=== PATIENT | male | born 1980 | race Caucasian/White ===

== ENCOUNTER → 2016-11-29 | Outpatient (CLI) | payer OTHER ==
--- NOTE | 2016-11-29 10:48 | US ---
EXAMINATION TYPE: US liver DATE OF EXAM: 11/29/2016 COMPARISON: NONE CLINICAL HISTORY: 36-year-old male R94.5 abn liver function. Elevated liver enzymes TECHNIQUE: Multiple sonographic images of the right upper quadrant are obtained. FINDINGS: PARALEGAL SECRETARY NOTES: Technical limitations due to patient's body habitus and large amount of overlyi ng bowel content Liver Length: 20.6 cm Gallbladder Wall: 0.3 cm CBD: 0.4 cm Right Kidney: 11.7 x 6.0 x 6.2 cm Pancreas: Obscured by bowel gas Liver: Enlarged and markedly echogenic and attenuating. Gallbladder: No abnormal gallbladder distention. Gallbladder wall is upper limits of normal in thick ness. No pericholecystic fluid. Some focal fatty sparing noted along the gallbladder fossa. A few ech ogenic, nonshadowing foci are present along the posterior gallbladder wall measuring up to 6 mm. Evidence for sonographic Lerma's sign: no CBD: visualized portions appear wnl Right Kidney: no evidence of hydronephrosis. IMPRESSION: 1. Hepatomegaly with marked hepatic steatosis. Correlate with LFTs, lipid profile, and patient risk f actors. 2. Either a few adherent gallstones versus more likely a few gallbladder wall polyps measuring up to 6 mm. Six-month follow-up gallbladder ultrasound recommended to assess stability.
--- NOTE | 2016-11-29 11:00 | US ---
EXAMINATION TYPE: US renal artery duplex complete DATE OF EXAM: 11/29/2016 COMPARISON: NONE CLINICAL HISTORY: 36-year-old male I10 HTN. HTN for 2-3 years TECHNIQUE: Multiple sonographic images of the kidneys and renal arterial vasculature were obtained fo r assessment of renal artery stenosis. FINDINGS: MEASUREMENTS: RENAL SIZE: Rt Kidney: 11.3 x 5.9 x 6.2cm Lt Kidney: 11.4 x 6.7 x 5.7cm RESISTANCE INDEX Right: 0.55 Left: 0.48 Aortic peak systolic velocity: 113 cm/s Max RA VELOCITY ( < 180 cm/s) Proximal Right: 132.2 cm/s Proximal Left: 127.8 cm/s RA/AO RATIO (< 3.5 ) Right: 1.2 Left: 1.1 MEDICAL TECHNOLOGIST HEMATOLOGY NOTES: *Technical limitations due to patient's body habitus and large amount of overlying bowel content. Visualized portions of abdominal aorta appear wnl, bifurcation obscured by overlying bowel. Kidneys appear unremarkable. NO evidence of renal artery stenosis at this time, as visualized. Resistive indices of approximately 0.5 noted throughout. Good upstroke at segmental branches at the hilum . IMPRESSION: 1. No hydronephrosis. 2. No sonographic evidence for renal artery stenosis on either side.
--- NOTE | 2016-11-29 11:02 | ECHOF ---
Referral Reason:I10 HTN MEASUREMENTS -------- HEIGHT: 182.9 cm WEIGHT: 117.9 kg BP: 140/100 RVIDd: 3.0 cm (< 3.3) IVSd: 1.1 cm (0.6 - 1.1) LVIDd: 3.9 cm (3.9 - 5.3) LVPWd: 1.2 cm (0.6 - 1.1) IVSs: 1.4 cm LVIDs: 3.2 cm LVPWs: 1.2 cm LAESV Index (A-L): 22.80 ml/m Ao Diam: 3.2 cm (2.0 - 3.7) AV Cusp: 2.2 cm (1.5 - 2.6) LA Diam: 3.8 cm (2.7 - 3.8) MV EXCURSION: 17.354 mm (> 18.000) MV EF SLOPE: 69 mm/s (70 - 150) EPSS: 0.3 cm MV E Pedro: 0.77 m/s MV DecT: 210 ms MV A Pedro: 0.56 m/s MV E/A Ratio: 1.38 RAP: 5.00 mmHg RVSP: 8.48 mmHg FINDINGS -------- Sinus rhythm. This was a technically adequate study. There is mild concentric left ventricular hypertrophy. Overall left ventricular systolic function is normal with, an EF between 55 - 60 %. The right ventricle is normal in size. Normal LA size by volume 22+/-6 ml/m2. The right atrial size is normal. The aortic valve is trileaflet, and appears structurally normal. No aortic stenosis or regurgitation. Mild mitral annular calcification present. Mild mitral regurgitation is present. Mild tricuspid regurgitation present. There is no evidence of pulmonary hypertension. The right ventricular systolic pressure, as measured by Doppler, is 8.48mmHg. There is no pulmonic regurgitation present. The aortic root size is normal. There is no pericardial effusion. CONCLUSIONS -------- 1. There is mild concentric left ventricular hypertrophy. 2. Overall left ventricular systolic function is normal with, an EF between 55 - 60 %. 3. Mild mitral annular calcification present. 4. Mild mitral regurgitation is present. 5. Mild tricuspid regurgitation present. 6. There is no evidence of pulmonary hypertension. 7. The right ventricular systolic pressure, as measured by Doppler, is 8.48mmHg. 8. There is no pulmonic regurgitation present. BUSINESS FUNCTIONAL ANALYST: Lashell Hernandez RDCS
== END | disposition home or self-care (01) ==
LOC: RADUSMAIN 08:04
PROVIDERS: ATTEND Family Medicine
DX: R16.0 Hepatomegaly, not elsewhere classified (principal); K76.0 Fatty (change of) liver, not elsewhere classified; I10 Essential (primary) hypertension; I08.1 Rheumatic disorders of both mitral and tricuspid valves
CPT/HCPCS: 76705; 93306; 93975

== ENCOUNTER → 2017-05-14 | Outpatient (CLI) | payer SELFPAY ==
--- NOTE | 2017-05-14 11:46 | US ---
EXAMINATION TYPE: US abdomen complete DATE OF EXAM: 05/14/2017 COMPARISON: Liver ultrasound November 29, 2016 CLINICAL HISTORY: R74.8 Abnormal Levels of other Enzymes. Elevated liver enzymes EXAM MEASUREMENTS: Liver Length: 19.0 cm Gallbladder Wall: 0.3 cm CBD: 0.4 cm Spleen: 14.6 cm Right Kidney: 11.1 x 6.5 x 6.6 cm Left Kidney: 11.2 x 7.4 x 5.3 cm Pancreas: obscured by overlying midline bowel gas Liver: enlarged at 19.0cm, increased echogenicity, increased attenuation with decreased visualizatio n of vessels, heterogeneous with 2.0cm hypoechoic area adjacent to gallbladder suggesting focal spari ng Gallbladder: wall measures in upper limits of normal at 0.3cm, multiple echogenic non shadowing foci seen along posterior wall with largest measuring 0.7cm. Evidence for sonographic Lerma's sign: no CBD: visualized portions wnl, limited by overlying bowel gas Spleen: enlarged at 14.6cm Right Kidney: wnl Left Kidney: 3.6 x 2.6cm isoechoic area mid pole, possible prominent column of ronald Upper IVC: wnl Abd Aorta: visualized portions wnl, proximal and mid portions obscured by overlying midline bowel ga s The visualized liver is redemonstrated heterogeneously hyperechoic similar to prior. Evaluation focal masses suboptimal due to the heterogeneity. The intrahepatic portion of the IVC and visualized porti on of abdominal aorta are within normal limits. Gallbladder shows small nonshadowing foci without mob ility felt to reflect tiny polyp similar to prior. Common bile duct is unremarkable. The visualized portions of the pancreas are homogenous. The spleen is enlarged measuring 14.6 cm on long axis. Ki dneys are free of hydronephrosis. Technologist torres 3.5 cm central isoechoic area favoring prominent renal cortex, solid or cystic lesion felt much less likely. IMPRESSION: Redemonstration of heterogeneous hyperechoic liver could reflect diffuse fatty infiltrati on or underlying hepatocellular disease, former is favored. Splenomegaly is however noted. Imaging gu ided random biopsy of liver can be performed to further evaluate if desired.
== END | disposition home or self-care (01) ==
LOC: RADUSWWP 09:52
PROVIDERS: ATTEND Family Medicine
DX: R16.1 Splenomegaly, not elsewhere classified (principal); K76.89 Other specified diseases of liver
CPT/HCPCS: 76700

== ENCOUNTER → 2017-12-10 | Outpatient (CLI) | payer OTHER ==
--- NOTE | 2017-12-10 11:51 | US ---
EXAMINATION TYPE: US venous doppler duplex LE BI DATE OF EXAM: 12/10/2017 8:54 AM COMPARISON: NONE CLINICAL HISTORY: 37-year-old male R60.0 Edema bilateral lower extremities. LE redness and swelling x 1 month; One antihypertensive medication recently discontinued. SIDE PERFORMED: Bilateral TECHNIQUE: The lower extremity deep venous system is examined utilizing real time linear array sonog jaylyn with graded compression, Doppler sonography and color-flow sonography. FINDINGS: VESSELS IMAGED: Common Femoral Vein Deep Femoral Vein Greater Saphenous Vein * Femoral Vein Popliteal Vein Small Saphenous Vein * Proximal Calf Veins Posterior tibial veins (* superficial vessels) Right Leg: Negative for DVT Left Leg: Negative for DVT; pulsatile left CFV Doppler signal is noted and is suggestive of CHF Edema channels are noted bilateral ankle. IMPRESSION: 1. No evidence for DVT within the bilateral lower extremities. 2. Some pulsatility to the venous flow in the left common femoral vein can be seen with elevated righ t heart pressures such as from CHF. Clinical correlation recommended. 3. Subcutaneous edema noted at both ankles and may relate to fluid overload state.
== END | disposition home or self-care (01) ==
LOC: RADUSWWP 08:21
PROVIDERS: ATTEND Family Medicine
DX: R60.0 Localized edema (principal)
CPT/HCPCS: 93970

== ENCOUNTER → 2018-03-14 | Day surgery (SDC) | payer OTHER ==
[2018-03-12 13:16] VITALS: BMI 35.6
[~2018-03-14] MED LIST: LACTATED RINGERS 1,000 ML IV ONE; LACTATED RINGERS 1,000 ML IV SCH; LIDOCAINE 1% 20 ML VIAL (10MG/ML) FOR IV START INTRADERMA ONE; PROPOFOL 10 MG/ML 20 ML VIAL IV ONE
[2018-03-14 08:31] VITALS: TEMP 97
[2018-03-14 08:41] LABS: Glucose,Whole Blood 143 mg/dL (75-99)
--- NOTE | 2018-03-14 09:20 | P.PCN ---
Date of Procedure: 03/14/18 Procedure(s) Performed: BRIEF HISTORY: Patient is a 38-year-old, pleasant, male, scheduled for an upper endoscopy as a part of evaluation of long-standing history of GERD and Felix' s esophagus. Last upper endoscopy was 2 years ago. He remains and AcipHex 20 mg daily. PROCEDURE PERFORMED: Esophagogastroduodenoscopy with biopsy. PREOPERATIVE DIAGNOSIS: Long-standing history of GERD/Felix's esophagus. IV sedation per anesthesia. PROCEDURE: After informed consent was obtained, the patient was brought into the endoscopy unit. IV sedation was administered by Anesthesia under continuous monitoring. Initially the Olympus GIF-140 video endoscope was inserted into the mouth. Esophagus intubated without any difficulty. It was gradually advanced into the stomach and duodenum and carefully examined. The bulb and the second part of the duodenum appeared normal. The scope at this time was withdrawn to the stomach, adequately insufflated with air, and upon careful examination, mucosa of the antrum, body appeared normal. There was large amount of food noted in the fundus of the stomach suggestive of gastroparesis. The visualized portions of the, cardia and the fundus appeared normal. The scope was then withdrawn into the esophagus. The GE junction was located at 39 cm from the incisors. Small hiatal hernia noted. There were 2 tongues of Felix's appearing mucosa extending 3-4 m proximal to the GE junction and this was biopsied. The rest of the esophagus appeared normal. There were no erosions or ulcerations seen and the patient tolerated the procedure well. IMPRESSION: 1. 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 2. Small hiatal hernia. 3. Retained food in the stomach suggestive of gastroparesis. RECOMMENDATIONS: The findings of this examination were discussed with the patient as well as a family. She he was advised to follow with the biopsy results. He will continue with AcipHex daily and follow antireflux measures. If the biopsy confirms presence of Felix's esophagus, he can have a repeat upper endoscopy in 2 years.
[2018-03-14 09:24] VITALS: RESP 16
[2018-03-14 09:28] VITALS: BP 144/82; PULSE 89
== END ==
LOC: ORWHC2ENDO 08:13
PROVIDERS: ATTEND Internal Medicine Gastroenterology
DX: K22.70 Barrett's esophagus without dysplasia (principal); K44.9 Diaphragmatic hernia without obstruction or gangrene; I10 Essential (primary) hypertension; E11.9 Type 2 diabetes mellitus without complications; Z79.899 Other long term (current) drug therapy; Z79.84 Long term (current) use of oral hypoglycemic drugs
CPT/HCPCS: 88305; 43239; J2704

== ENCOUNTER → 2023-09-25 | Outpatient (CLI) | payer OTHER ==
--- NOTE | 2023-09-25 11:05 | CA ---
Transthoracic Echo Report Name: Aric Mahmood Age: 43 Gender: M : 1980 Exam Date: 09/25/2023 08:25 Exam Location: [facility] Ht (in): 73 Wt (lb): 275 Ordering Physician: Tim Day MD Attending/Referring Phys: Meeta Pike [facility] Underwriting Clerks Supervisor Cristin Todd RDCS Procedure CPT: Indications: I10 HYPERTENSION Cardiac Hx: Technical Quality: Fair Contrast 1: Total Dose (mL): Contrast 2: Total Dose (mL): MEASUREMENTS (Male / Female) Normal Values 2D ECHO LV Diastolic Diameter PLAX 4.7 cm 4.2 - 5.9 / 3.9 - 5.3 cm LV Systolic Diameter PLAX 3.4 cm IVS Diastolic Thickness 1.2 cm 0.6 - 1.0 / 0.6 - 0.9 cm LVPW Diastolic Thickness 1.0 cm 0.6 - 1.0 / 0.6 - 0.9 cm LV Relative Wall Thickness 0.5 RV Internal Dim ED PLAX 4.4 cm LVOT Diameter 1.9 cm LV Diastolic Volume MOD BP 171.1 cm??? 67 - 155 / 56 - 104 cm??? LV Systolic Volume MOD BP 70.9 cm??? 22 - 58 / 19 - 49 cm??? LV Ejection Fraction MOD BP 58.5 % >= 55 % LV Cardiac Index MOD BP 3185.0 cm???/min???m??? LV Diastolic Volume MOD 4C 184.3 cm??? LV Systolic Volume MOD 4C 74.4 cm??? LV Ejection Fraction MOD 4C 59.6 % LV Cardiac Index MOD 4C 3494.8 cm???/min???m??? LV Diastolic Length 4C 11.4 cm LV Systolic Length 4C 9.9 cm LV Diastolic Volume MOD 2C 147.4 cm??? LV Systolic Volume MOD 2C 55.3 cm??? LV Ejection Fraction MOD 2C 62.5 % LV Cardiac Index MOD 2C 2929.5 cm???/min???m??? LV Diastolic Length 2C 10.5 cm LV Systolic Length 2C 8.0 cm LA Volume 68.8 cm??? 18 - 58 / 22 - 52 cm??? LA Volume Index 26.7 cm???/m??? 16 - 28 cm???/m??? Ascending Aorta Diameter 3.7 cm DOPPLER AV Peak Velocity 124.6 cm/s AV Peak Gradient 6.2 mmHg AV Mean Velocity 83.5 cm/s AV Mean Gradient 3.2 mmHg AV Velocity Time Integral 24.5 cm LVOT Peak Velocity 96.1 cm/s LVOT Peak Gradient 3.7 mmHg LVOT Velocity Time Integral 18.8 cm LVOT Stroke Volume 54.8 cm??? LVOT Stroke Volume Index 22.2 ml/m??? LVOT Cardiac Index 1742.1 cm???/min???m??? AV Area Cont Eq vti 2.2 cm??? AV Area Cont Eq pk 2.2 cm??? MV Area PHT 4.8 cm??? Mitral E Point Velocity 88.7 cm/s Mitral A Point Velocity 43.8 cm/s Mitral E to A Ratio 2.0 MV Deceleration Time 157.1 ms PV Peak Velocity 116.7 cm/s PV Peak Gradient 5.4 mmHg FINDINGS Left Ventricle Left ventricular ejection fraction is estimated at 55-60 %. Mildly increased septal wall thickness. Mildly increased left ventricular diastolic volume. Mildly increased left ventricular systolic volume. No obvious regional wall motion abnormalities. Right Ventricle Mild right ventricular dilatation with normal function. Unable to estimate the right ventricular systolic pressure. Right Atrium Normal right atrial size. Left Atrium Mildly increased left atrial volume. Mildly increased left atrial area. Mitral Valve Structurally normal mitral valve. No mitral stenosis, regurgitation or prolapse. Aortic Valve Trileaflet aortic valve. No aortic valve stenosis or regurgitation. Tricuspid Valve Structurally normal tricuspid valve. No tricuspid stenosis, regurgitation or prolapse. Pulmonic Valve Structurally normal pulmonic valve. No pulmonic stenosis. No pulmonic regurgitation. Pericardium No pericardial effusion. Aorta Normal size aortic root and proximal ascending aorta. CONCLUSIONS Preserved LV size and function Mild RV enlargement Previewed by: Dr. John Lara MD (Electronically Signed) Final Date: 25 September 2023 11:04
== END | disposition home or self-care (01) ==
LOC: RADECHMAIN 08:25
PROVIDERS: ATTEND Family Medicine
DX: I11.9 Hypertensive heart disease without heart failure (principal)
CPT/HCPCS: 93306